=== PATIENT | female | born 1980 | race Caucasian/White ===

== ENCOUNTER 2021-08-23 15:20 | Outpatient (CLI) | payer OTHER, SELFPAY ==
[2021-08-23 16:48] LABS: SARS-CoV-2 Ag Negative (Negative)
[2021-08-24 21:12] LABS: SARS-CoV-2 RNA PCR Negative
== END 2021-08-23 15:21 | disposition home or self-care (01) ==
LOC: CHSLAB 15:26
PROVIDERS: PCP Family Medicine; Visit Provider Nurse Practitioner
DX: Z20.822 Contact with and (suspected) exposure to COVID-19 (principal)
CPT/HCPCS: 87426; C9803; U0003; U0005

== ENCOUNTER 2022-05-27 16:54 | Emergency (ER) | payer OTHER, SELFPAY ==
--- NOTE | ~2022-05-27 | CT_ITS ---
EXAMINATION: CT abdomen pelvis wo con DATE: 05/27/2022 18:06 INDICATION: Right lower quadrant pain TECHNIQUE: Computed tomography (CT) of the abdomen and pelvis was performed without intravenous contr ast. The dose-length product (DLP) was 230.70 mGy-cm. Automated exposure control and iterative recons truction technique were employed. COMPARISON: None FINDINGS: Calcified pulmonary nodules are consistent with old granulomatous disease. The heart size i s normal. The liver, spleen, pancreas, gallbladder, and adrenal glands are normal. The kidneys are un remarkable. No pathologically enlarged abdominal or pelvic lymph nodes are identified. There is no fr ee intraperitoneal gas or evidence of bowel obstruction. The appendix is normal. There is a small vol ume of free fluid in the pelvis, likely physiologic. There is an umbilical hernia containing fat. IMPRESSION: 1. No CT correlate for the patient's symptoms. Reviewed, dictated and finalized at location F.
[2022-05-27 17:00] VITALS: BP 131/99; PULSE 95; RESP 20; TEMP 36.9; O2SAT 99
--- NOTE | 2022-05-27 17:37 | ED.ABDPAIN ---
HPI - Abdominal Pain General Chief Complaint: Abdominal Pain Stated Complaint: lower R ab pain History of Present Illness HPI narrative: PATIENT IS A 41-YEAR-OLD WHITE FEMALE WAS HAVING SEX WITH HER BOYFRIEND LAST NIGHT AROUND 11:00 P.M. WHEN SHE HAD SUDDEN RIGHT LOWER QUADRANT PAIN. SHE HAS HAD THE PAIN EVER SINCE. SHE FEELS A LITTLE NAUSEATED OTHER THAN THAT SHE HAS NO PROBLEMS WITH VOIDING OR STOOLING EATING OR DRINKING. SHE DENIES ANY FEVER BACK PAIN OR OTHER PAINS. DENIES ANY COUGH OR RASH. SHE HAS NOT TAKEN ANYTHING FOR THE PAIN. SHE DESCRIBES THE PAIN SHARP ACHY TO 4/10 AT THIS TIME. DENIES ANY CHANGING BOWEL HABITS BLOOD IN HER STOOLS. SHE HAS HAD TUBAL LIGATION. HER LAST PERIOD WAS NORMAL. Pain scale (0-10): 4 Associated symptoms: nausea Related Data Home Medications Medication Instructions Recorded Confirmed No Home Medications 05/27/22 05/27/22 Allergies Allergy/AdvReac Type Severity Reaction Status Date / Time Penicillins Allergy Unknown Verified 05/27/22 17:27 Review of Systems Review of Systems: All systems reviewed & are unremarkable except as noted in HPI and below Constitutional: Constitutional: Reports no additional constitutional complaints Eyes: Eyes: Reports no additional eye complaints ENT: Reports system reviewed and no additional complaints, except as documented Cardiovascular: Cardiovascular: Reports no additional cardiovascular complaints Respiratory: Respiratory: Reports no additional respiratory complaints Gastrointestinal: Gastrointestinal: Reports as per HPI and Reports no additional gastrointestinal complaints Genitourinary: Genitourinary: Reports no additional female genitourinary complaints Musculoskeletal: Musculoskeletal: Reports no additional musculoskeletal complaints Neurologic: Reports system reviewed and no additional complaints, except as documented Exam Narrative: WHITE FEMALE SHE APPEARS IN NO APPARENT DISTRESS EYES CONJUNCTIVA PINK SCLERAE NONICTERIC. NECK IS SUPPLE NO LYMPHADENOPATHY. OROPHARYNX IS CLEAR WITH MOIST MUCOUS MEMBRANES. LUNGS ARE CLEAR. HEART IS REGULAR RATE AND RHYTHM WITHOUT MURMURS GALLOPS OR RUB. ABDOMEN SOFT MILD TENDERNESS RIGHT LOWER QUADRANT WITHOUT REBOUND NEGATIVE PSOAS SIGN, NEGATIVE INTERNAL OBTURATOR SIGN NO CVA TENDERNESS POSITIVE BOWEL SOUNDS. EXTREMITIES NO CYANOSIS CLUBBING OR EDEMA NEUROLOGICAL SHE IS ALERT AND ORIENTED X4 MOTOR AND SENSORY ARE GROSSLY INTACT. Course Course Emergency Course: PATIENT DID NOT WANT ANYTHING FOR PAIN AT DISCHARGE SHE FELT BETTER. EVALUATION AND PLAN WAS DISCUSSED. ALL QUESTIONS WERE ASKED AND ANSWERED. Vital Signs Vital signs: Vital Signs Temperature 36.9 C 05/27/22 17:00 Pulse Rate 95 10/23/22 17:00 Respiratory Rate 20 05/27/22 17:00 Blood Pressure 131/99 H 05/27/22 17:00 Pulse Oximetry 99 05/27/22 17:00 Oxygen Delivery Room Air 05/27/22 17:00 Temperature 36.9 C 05/27/22 17:00 Pulse Rate 95 05/27/22 17:00 Respiratory Rate 20 05/27/22 17:00 Blood Pressure 131/99 H 05/27/22 17:00 Pulse Oximetry 99 05/27/22 17:00 Oxygen Delivery Room Air 05/27/22 17:00 Discharge Plan Discharge Clinical Impression: Abdominal pain, Muscle strain Patient Disposition: Home, Self-Care Condition: Improved Instructions: Abdominal Pain (ED) Additional Instructions: TYLENOL AND OR IBUPROFEN FOR PAIN NEEDED RETURN IF YOU GET WORSE OR DEVELOPING NEW SYMPTOMS. FOLLOW-UP WITH THE PRIVATE MEDICAL DOCTOR NEXT WEEK. Prescriptions: No Action No Home Medications Follow-up/Referrals: Conrad Castrejon M.D. [Primary Care Provider] -
[2022-05-27 17:53] LABS: Basophils Absolute Auto 0.09 K/mm3 (0.00-0.10); Basophils Percent Auto 0.7 % (0.0-1.0); Eosinophils Absolute Auto 0.18 K/mm3 (0.02-0.50); Eosinophils Percent Auto 1.4 % (1.0-6.0); Hemoglobin 13.9 g/dL (12.0-15.0); Immature Granulocyte Absolute 0.06 K/mm3 (0.00-0.00); Immature Granulocyte Percent A 0.5 % (0.0-0.0); Lymphocytes Absolute Auto 3.37 K/mm3 (1.10-4.50); Lymphocytes Percent Auto 25.9 % (18.0-42.0); Mean Corpuscular HGB Conc 33.9 g/dL (32.0-36.0); Mean Corpuscular Hemoglobin 31.1 pg (27.0-31.0); Mean Corpuscular Volume 91.7 fL (78.0-102.0); Mean Platelet Volume 9.5 fl (9.2-11.8); Monocytes Absolute Auto 1.01 K/mm3 (0.10-0.90); Monocytes Percent Auto 7.8 % (2.0-11.0); Neutrophils Absolute Auto 8.3 K/mm3 (1.7-7.2); Neutrophils Percent Auto 63.7 % (50.0-70.0); Platelet Count Result 299 K/mm3 (150-420); Red Blood Count 4.47 M/mm3 (4.20-5.40); Red Cell Distribution Width 12.6 % (11.6-14.4)
[2022-05-27 18:08] VITALS: BP 121/84; PULSE 74; RESP 20; O2SAT 97
[2022-05-27 18:08] LABS: Alanine Aminotransferase 20 U/L (14-59); Albumin Level 3.8 g/dL (3.4-5.0); Alkaline Phosphatase 67 U/L (46-116); Anion Gap 9 mmol/L (8-16); Aspartate Amino Transferase 11 U/L (15-37); Bilirubin,Total 0.8 mg/dL (0.00-1.00); Blood Urea Nitrogen 7 mg/dL (7-18); Calcium 8.6 mg/dL (8.5-10.1); Carbon Dioxide 25 mmol/L (21-32); Chloride 103 mmol/L (98-108); Estimated CRCL calculation 72 ml/min; Estimated Glomerular Filt Rate > 60; Glucose 86 mg/dL (70-99); Lipase 72 U/L (73-393); Osmolality Calculated 281 mOsm/kg (285-295); Potassium 3.1 mmol/L (3.5-5.1); Sodium 137 mmol/L (136-145); Total Protein 7.4 g/dL (6.4-8.2)
[2022-05-27 18:11] LABS: Lactic Acid Reflex 0.9 mmol/L (0.4-2.0)
[2022-05-27 18:21] LABS: Appearance Urine Clear (Clear); Bilirubin Urine Negative (Negative); Blood Urine 2+ (Negative); Glucose Urine UA Negative (Negative); Ketones Urine Negative (Negative); Leukocyte Esterase Ur Negative LEU/UL (Negative); Nitrate Urine Negative (Negative); Protein Urine Negative (Negative); Specific Grav Ur <= 1.005 (1.010-1.020); Urobilinogen Urine 0.2 mg/dL (0.2-1.0)
[2022-05-27 18:28] LABS: Add Urine Microscopic? YES; Color Urine Light Yellow (Yellow); Squamous Epithelial Cell Urine Moderate /hpf (Few)
[2022-05-27 18:29] LABS: Pregnancy On Board Control Positive; Urine Pregnancy Test Negative
[2022-05-27 19:07] VITALS: BP 112/71; PULSE 62; RESP 16; O2SAT 98
--- NOTE | 2022-05-27 19:07 | PC.NURSE ---
REPORT TO MISHA YU. NO QUESTIONS AT THIS TIME.
== END 2022-05-27 19:39 | disposition home or self-care (01) ==
PROVIDERS: Emergency Provider Emergency Medicine; PCP Family Medicine
DX: R10.9 Unspecified abdominal pain (principal); T14.8XXA Other injury of unspecified body region, initial encounter
CPT/HCPCS: 36415; 74176; 80053; 81001; 81025; 83605; 83690; 85025; 99284

== ENCOUNTER 2022-06-15 07:21 | Outpatient (CLI) | payer OTHER, SELFPAY ==
[2022-06-15 08:01] LABS: Alanine Aminotransferase 23 U/L (14-59); Albumin Level 3.9 g/dL (3.4-5.0); Alkaline Phosphatase 69 U/L (46-116); Anion Gap 8 mmol/L (8-16); Aspartate Amino Transferase 14 U/L (15-37); Bilirubin,Total 0.9 mg/dL (0.00-1.00); Blood Urea Nitrogen 9 mg/dL (7-18); Calcium 8.7 mg/dL (8.5-10.1); Carbon Dioxide 26 mmol/L (21-32); Chloride 108 mmol/L (98-108); Cholesterol 163 mg/dL (0-200); Estimated Glomerular Filt Rate > 60; Glucose 101 mg/dL (70-99); HDL Direct 70 mg/dL (40-60); LDL Cholesterol Calculated 84 mg/dL (<130); Osmolality Calculated 292 mOsm/kg (285-295); Potassium 4.3 mmol/L (3.5-5.1); Sodium 142 mmol/L (136-145); Triglycerides 45 mg/dL (0-150)
== END 2022-06-15 07:22 | disposition home or self-care (01) ==
LOC: CHSLAB 07:23
PROVIDERS: PCP Family Medicine; Visit Provider Nurse Practitioner
DX: E87.6 Hypokalemia (principal)
CPT/HCPCS: 36415; 80053; 80061

== ENCOUNTER 2023-06-15 23:02 | Emergency (ER) | payer OTHER, SELFPAY ==
--- NOTE | ~2023-06-15 | XR_ITS ---
EXAMINATION: XR knee LT 3V DATE: 06/15/2023 23:15 INDICATION: Left knee pain. Fall. TECHNIQUE: 3 views of left knee were obtained. COMPARISON: None. FINDINGS: Bone alignment is normal. No fracture. There is mild osteoarthritis of patellofemoral geo rtment characterized by a tiny osteophyte. No knee joint effusion. IMPRESSION: 1. Mild left knee osteoarthritis. Reviewed, dictated and finalized at location E. [employer]
[2023-06-15 23:04] VITALS: BP 118/71; PULSE 92; RESP 18; TEMP 36.9; O2SAT 100
--- NOTE | 2023-06-15 23:17 | ED.LOWEXIN ---
HPI - Extremity Injury (Lower) General Chief Complaint: Extremity Injury, Lower Stated Complaint: left knee injury/pain Time Seen by Provider: 06/15/23 23:04 Source: patient Mode of arrival: ambulatory Limitations: no limitations History of Present Illness HPI Narrative: this is a 42-year-old female that was at [employer] and was going down a slide and injured her anterior left knee area there is some tenderness with palpation and movement otherwise no numbness or tingling as good range of motion although tender with movement. complaint: knee injury Onset (ago): hour(s) Injury: Left: knee ( Tender anterior left knee) Type of Injury: blunt Place: other Severity: mild Severity scale (1-10): 4 Relieving factors: NSAID and immobilization Context: direct blow Related Data Home Medications Medication Instructions Recorded Confirmed No Home Medications 05/27/22 06/15/23 Allergies Allergy/AdvReac Type Severity Reaction Status Date / Time Penicillins Allergy Unknown Verified 06/15/23 23:11 Review of Systems Review of Systems: All systems reviewed & are unremarkable except as noted in HPI and below PMFSH Past Medical History Medical History Patient denies medical problems Exam Const: General: healthy appearing and no acute distress Nutritional Appearance: well nourished Orientation/consciousness: patient oriented x3 Limitations: no limitations Resp: Effort & Inspection: normal respiratory effort Auscultation: clear to auscultation bilaterally Cardio: Rate: regular rate Rhythm: regular rhythm GI: GI Palp: Yes Soft to palpation Skin: General skin exam: normal color Wounds: no wounds Neuro: General: patient oriented x3 and moves all extremities Extrem: Other: tenderness anterior left knee with palpation and movement Course Course Emergency Course: patient says she is comfortable as far as pain is concerned took Tylenol prior to arrival to the ER, x-ray performed and reviewed which shows no acute fractures alex wrap was applied. Vital Signs Vital signs: Vital Signs Temperature 36.9 C 06/15/23 23:04 Pulse Rate 92 06/15/23 23:04 Respiratory Rate 18 06/15/23 23:04 Blood Pressure 118/71 06/15/23 23:04 Pulse Oximetry 100 06/15/23 23:04 Oxygen Delivery Room Air 06/15/23 23:04 Temperature 36.9 C 06/15/23 23:04 Pulse Rate 92 06/15/23 23:04 Respiratory Rate 18 06/15/23 23:04 Blood Pressure 118/71 06/15/23 23:04 Pulse Oximetry 100 06/15/23 23:04 Oxygen Delivery Room Air 06/15/23 23:04 Critical Care Time Critical Care Time Critical Care Time: No Discharge Plan Discharge Clinical Impression: Sprain of knee Patient Disposition: Home, Self-Care Condition: Stable Instructions: Antibiotic Form, Knee Sprain (ED) Additional Instructions: advised to continue Tylenol or Motrin, continue Alex wrap, rest keep leg elevated while resting can use ice to affected area follow-up primary if symptoms persist or worsen. Prescriptions: No Action No Home Medications Follow-up/Referrals: Conrad Castrejon M.D. [Primary Care Provider] -
== END 2023-06-15 23:32 | disposition home or self-care (01) ==
PROVIDERS: Emergency Provider Emergency Medicine; PCP Family Medicine
DX: S83.92XA Sprain of unspecified site of left knee, initial encounter (principal); X58.XXXA Exposure to other specified factors, initial encounter
CPT/HCPCS: 73562; 99283

== ENCOUNTER 2023-07-05 07:47 | Outpatient (CLI) | payer OTHER, SELFPAY ==
[2023-07-05 08:51] LABS: Alanine Aminotransferase 33 U/L (14-59); Alkaline Phosphatase 62 U/L (46-116); Anion Gap 7 mmol/L (8-16); Aspartate Amino Transferase 19 U/L (15-37); Bilirubin,Total 1.4 mg/dL (0.00-1.00); Blood Urea Nitrogen 6 mg/dL (7-18); Calcium 9.1 mg/dL (8.5-10.1); Carbon Dioxide 29 mmol/L (21-32); Chloride 105 mmol/L (98-108); Cholesterol 167 mg/dL (0-200); Estimated Glomerular Filt Rate > 60; Glucose 98 mg/dL (70-99); HDL Direct 55 mg/dL (40-60); LDL Cholesterol Calculated 103 mg/dL (<130); Osmolality Calculated 289 mOsm/kg (285-295); Potassium 4.2 mmol/L (3.5-5.1); Sodium 141 mmol/L (136-145); Total Protein 6.9 g/dL (6.4-8.2); Triglycerides 43 mg/dL (0-150)
== END 2023-07-05 07:48 | disposition home or self-care (01) ==
LOC: CHSLAB 07:49
PROVIDERS: PCP Family Medicine; Visit Provider Family Medicine
DX: Z13.220 Encounter for screening for lipoid disorders (principal)
CPT/HCPCS: 36415; 80053; 80061